=== PATIENT | male | born 1960 | race Caucasian/White ===

== ENCOUNTER 2025-07-04 02:00 | Inpatient (IN) | payer BC, MEDICARE, SELFPAY ==
[2025-07-03 20:40] VITALS: BP 123/78
[2025-07-03 21:08] LABS: Hematocrit 45.2 % (39.0-52.0); Hemoglobin 15.7 g/dL (13.0-18.0); Mean Corp Hgb Conc. 34.7 g/dL (33.0-37.0); Mean Corpuscular Volume 89.7 fL (80.0-94.0); Nucleated Red Blood Cells % 0 % (-); Platelet Count 260 10^3/uL (130-400); Red Cell Dist. Width 12.8 % (11.5-14.5)
[2025-07-03 21:18] LABS: INR 0.94; PT 13.1 Sec (11.4-14.6)
[2025-07-03 21:19] LABS: APTT 33.2 Sec (23.4-35.0)
[2025-07-03 21:29] LABS: ALT (SGPT) 34 U/L (0-50); AST (SGOT) 29 U/L (17-59); Albumin 4.5 g/dl (3.5-5.0); Alkaline Phosphatase 80 U/L (38-126); Blood Urea Nitrogen 18 mg/dl (9-20); Calcium 10.1 mg/dl (8.4-10.2); Carbon Dioxide 20 mmol/L (22-30); Chloride 106 mmol/L (98-107); Glucose 124 mg/dl (70-99); Potassium 4.0 mmol/L (3.5-5.1); Sodium 135 mmol/L (135-145)
[2025-07-03 21:39] LABS: Total Protein 7.0 g/dl (6.3-8.2); eGFR > 60.00
[2025-07-03 21:41] LABS: Troponin I < 0.012 ng/ml
[2025-07-03 23:10] VITALS: BMI 30.3
[2025-07-04] VITALS (29 sets, daily range): BP systolic 73–130; BP diastolic 60–81; BMI 30.1
--- NOTE | 2025-07-04 00:27 | ED.GENMED ---
History of Present Illness
General
Chief Complaint: Cardiac Symptoms
Source: patient and spouse
Exam Limitations: none
Time Seen by Provider: 07/03/25 23:52
Nursing documentation reviewed up to this point in time: agreed with
History of Present Illness
History of Present Illness:
The patient is a 64-year-old male who presented with the sudden onset of palpitations approximately two hours before arrival. The patient has no history of heart problems or congestive heart failure but has a history of diabetes that is generally
well-controlled with oral medications, including metformin, Mounjaro (tirzepatide), and Farxiga (dapagliflozin), as well as insulin. He reports no recent episodes of hypoglycemia after adjusting his insulin dose to 45 units of basal insulin daily.
HgbA1c of 6.0. The patient denies any recent increase in alcohol consumption, stating his consumption as minimal. He reports no associated symptoms such as pain, cough, cold, or fever. He exercises regularly without shortness of breath and has no
history of hypertension or stroke.
The patient has not previously experienced this kind of palpitations and denies any history of thyroid dysfunction, though thyroid function tests are pending. His palpitations were described as intermittent. At home with onset of palpitations his
heart rate was in the 130s with mildly low blood pressure. The patient is currently not under the care of a whip sawyer.
Past History
Past History
ED Past Medical History: Hypercholesterolemia and IDDM (Insulin requiring diabetes)
ED Past Surgical History: Appendectomy and Orthopedic
Social History
Tobacco: Non-smoker
Alcohol: Occasional
Drug: None
Personal:
Living: with family
Family History
Family History: Other (Noncontributory)
Phy Exam
Physical Exam
Physical Exam:
GENERAL: 64-year-old gentleman appears his stated age, bright and alert, pleasant, appears in no acute distress. is accompanying.
EYE: pupils equal and reactive
NECK: Supple, no significant adenopathy.
ENT: o/p clr, mmm.
CARDIAC: Irregularly irregular, intermittently tachycardic
LUNGS: Clear breath sounds bilaterally, no acute respiratory distress,
ABDOMEN: Soft, without focal tenderness, no r/g, no cvat
NEUROLOGICAL: Alert and oriented, no focal neuro deficits
SKIN: Warm and dry, skin intact.
MUSCULOSKELETAL: No edema, well perfused.
PSYCH: Normal and appropriate interaction.
Scores
[id number] Score for Afib Stroke Risk
Age in Years (65=0, 65-74=1, >/=75=2): 65-74
Sex (Female=+1): Male
Congestive Heart Failure History (Yes=+1): No
Hypertension History (Yes=+1): No
Stroke/TIA/Thromboembolism History (Yes=+2): No
Vascular Disease History (Yes=+1): No
Diabetes Mellitus (Yes=+1): Yes
Score: 2
Anticoagulation Recommendations: Recommend anticoagulation (as validated in nonvalvular fib)
Course
Orders/Labs/Results
Orders:
Orders
07/03/25 20:41
Electrocardiogram (*1) Urgent
Reason for Study: Tachycardia
EKG- Treatment ONCE
07/03/25 20:55
Complete Blood Count/With Diff Urgent
Comprehensive Metabolic Panel Urgent
Magnesium Urgent
Comment: ADD ON
PT/INR [Prothrombin Time] Urgent
Is patient on Coumadin/Warfarin?: No
Comment: [email or web address]
PTT Urgent
TSH Reflex To Free T4 Urgent
Comment: ADD ON
Troponin I Urgent
07/03/25 23:54
Add On- LAB Urgent
Tests Added?: TSH w reflex to free T-4, Magnesium
07/04/25 00:40
Propofol [Diprivan] 20 ml .ROUTE .STK-MED
07/04/25 01:34
Electrocardiogram (*1) Urgent
Reason for Study: Hypertension, Benign
EKG- Treatment ONCE
07/04/25 01:52
Admit/Transfer Patient As Directed
Co-Sign Provider:
Level of Care: Inpatient admission
Assign to:: Telemetry
Physician / Group: Elsa
Diagnosis: new onset afib
Reason for Telemetry: Medication for Arrhythmia
Date to Stop Telemetry: 07/06/25
Time to Stop Telemetry: 11:00
Reason for Hospitalization: [place]
Expected length of stay greater than two midnights?: Yes
ELOS- Estimated Length of Stay in days: 2
I certify the patient meets the requirements for IP care: Yes
PRN Pain Medication Management As Directed
May give lesser potent ordered pain med per pt: Yes
preference::
Protocol:: Medication orders for pain may be administered in a
manner that supports deferring to patient preference
when the pt is:
- Requesting an ordered lesser potent pain medication.
Least to most potent pain medications are defined
as: acetaminophen < NSAID < tramadol < opioids
(morphine, oxycodone, hydromorphone).
- Requesting a lesser dose of the same medication IF
ORDERED.
- Requesting a less intrusive route of administration
if both routes are prescribed by the provider (PO <
IV).
07/04/25 01:53
Code Status As Directed
Resuscitation Status: Full Code
07/04/25 01:57
Metoprolol [Lopressor] 25 mg PO NOW STA
07/04/25 03:11
Acetaminophen [Tylenol] 650 mg PO Q4HPRN PRN
Bisacodyl [Dulcolax] 10 mg RECTAL [id number] PRN
Dextrose 50%-Water [Dextrose 50% Syringe] 12.5 grams IV [id number] PRN
Docusate W/Senna [Senokot-S] 1 tablet PO BIDPRN PRN
Glucagon [GlucaGen] 1 mg IM PRN PRN
Ondansetron Injectable [Zofran] 4 mg IV Q6HPRN PRN
Polyethylene Glycol Powder [Miralax] 17 grams PO DAILYPRN PRN
07/04/25 03:11
Echo 2D MMode Color/Doppler Routine
Reason for Study: new onset afib
CARDIOLOGY CONSULT Routine
Consulting Provider: Pito Vasquez
Was physician already notified: No
Reason for consult: new onset afib
Consult Notification Routine
Specialty to Notify: Cardiology
Activity As Directed
Activity Level: With Assistance
Bedside Glucose Monitoring As Directed
Frequency: AC&HS
Additional Instructions:: Change to q6h if pt on TPN, tube feeding or not eating
Pneumatic Compression Sleeves As Directed
Type: Knee high
Vital Signs As Directed
Frequency: Per unit guidelines
DX Deep Vein Thrombosis Video Routine
07/04/25 Breakfast
1800 calorie (15 carb) Diabetic
Metoprolol [Lopressor] 12.5 mg PO Q6
07/04/25 06:12
Basic Metabolic Panel IN AM
Complete Blood Count/No Diff IN AM
Glycohemoglobin (HgbA1c) IN AM
Magnesium IN AM
07/04/25 07:30
Insulin Aspart Corrective Low [Novolog Flexpen-Low Resistance] See Protocol SC AC
07/04/25 08:00
Apixaban [Eliquis] 5 mg PO BID
Atorvastatin [Lipitor] 10 mg PO DAILY
Dapagliflozin [Farxiga] 10 mg PO DAILY
METFORMIN HCl [Glucophage] 1,000 mg PO BID
07/06/25 11:00
DC Protocol for Telemetry ONCE
Abnormal Lab Results
07/03/25
20:55
WBC 16.5 H 10^3/uL
(4.8-10.8)
MCH 31.2 H pg
(27.0-31.0)
Absolute Neuts (auto) 8.6 H 10^3/uL
(1.4-6.5)
Absolute Lymphs (auto) 6.4 H 10^3/uL
(1.2-3.4)
Absolute Monos (auto) 1.2 H 10^3/uL
(0.1-0.6)
Carbon Dioxide 20 L mmol/L
(22-30)
Glucose 124 H mg/dl
(70-99)
07/03/25 20:55
07/03/25 20:55
Vital Signs
Initial and Last Documented VS:
Initial Vital Signs
Temp Pulse Resp BP Pulse Ox
98.2 F 137 18 123/78 98
07/03/25 20:40 07/03/25 20:40 07/03/25 20:40 07/03/25 20:40 07/03/25 20:40
Last Documented Vital Signs
Temp Pulse Resp BP Pulse Ox
97.5 F 64 16 115/62 98
07/04/25 03:23 07/04/25 06:22 07/04/25 03:23 07/04/25 06:22 07/04/25 03:23
Procedures
Cardioversion
Indication:: Afib
Performed by:: myself
Synchronized?: Yes
Energy Used: 200 joules (x 1)
Number of attempts: 150 J x1, 200 J x2
Successful?: No (Brief conversion to normal sinus rhythm on each attempt but then converts b)
Complications: none
ASA Risk Score: Class II
Any reaction or bad outcome to prior sedation/anesthesia?: No history of a reaction
Sedation level to be attained: moderate
Chart and allergies reviewed: Yes
Patient reassessed prior to sedation: Yes
Time out completed at (validating right patient & procedure): 00:53
History of difficult intubation: No
Airway free of obstruction: Yes
Patient has a gag reflex: Yes
Patient is able to open mouth: Yes
Patient has no dentures: Yes
Patient has no loose teeth: Yes
Medication administered by Provider during Moderate Sedation: IV Propofol (mg)
Total dose administered: 140
Time drug administered: 00:54
Start Time: 00:54
Stop Time: 01:10
MDM/Problems Addressed
Differential Diagnosis Includes:
The Differential Diagnosis includes, in no particular order and is not limited to:
- Atrial fibrillation
- Supraventricular tachycardia
- Anxiety
- Hyperthyroidism
- Premature ventricular contractions
- Premature atrial contractions
- Coronary artery disease
- Anemia
- Caffeine or stimulant exposure
- Electrolyte imbalance
MDM/Problems Addressed:
Acute heart palpitations
EKG shows atrial fibs flutter with ventricular response of 101. Normal axis. Normal QT. No acute ST-T wave abnormalities. No old EKGs to compare.
Monitor continues to show A-fib flutter with variable heart rate ranging from the 80s to 120. Generally rate controlled. Blood pressure is somewhat soft at 110 systolic. He has no history of hypertension.
At this point does not require IV medication for rate control.
We could consider initiation of metoprolol or Cardizem orally for rate control, discharged to home with plan for prompt follow-up with cardiology. However with soft blood pressure I am concerned for development of hypotension with any attempt at
further rate control.
Therefore, recommend we move to electrical cardioversion.
Patient agreeable with this plan.
Labs reveal mildly elevated white blood cell count. Nonspecific. He denies recent URI. He is afebrile. Chemistries are unremarkable. Troponin is negative.
Will add thyroid function as well as magnesium.
His happens to work for [employer], the [employer]. Ultimately, patient will require follow-up with cardiology and will plan for referral to [facility] cardiology.
If cardioversion successful will plan for discharge to home with a prescription for Eliquis.
[id number] score of 2; we did discuss the patient will likely require lifelong anticoagulation.
Chronic conditions affecting care: DM
*Pulse Oximetry
SaO2: 96
Oxygen Mode of Delivery: Room air
Patient hypoxic: no
*EKG
Interpreted by ED Provider?: Yes
Interpretation: abnormal
Comparison EKG: no comparison EKG present
Rate: tachycardiac
Rhythm: a-fib
[place]: normal axis
Interval: normal interval
QRS Pattern: normal QRS
Ischemia: no ischemia
*Hand Ornament Maker Interpretation
Rate: normal and tachycardiac
Interpretation: abnormal
Rhythm: a-fib
*Critical Care Note
Total Time (30-74mins, 75-104mins- exclusive of procedures): Not Applicable
Update Note
Update Note:
01:30
Unsuccessful cardioversion. Despite 3 synchronized electrical cardioversions which noted prompt cardioversion to normal sinus rhythm with first-degree AV block. Sinus rhythm was unsustained on each cardioversion attempt, converting back to A-fib
within 15 to 30 seconds.
As such, no further cardioversion attempts.
Patient tolerated procedure well. Remains hemodynamically stable.
Blood pressure remains somewhat soft, initially after procedure in the 80s, has improved to 100-110 systolic.
Case discussed with cardiology, Dr. Vasquez.
Request patient be admitted to hospitalist service with consult to cardiology.
Recommends initiation of Eliquis. Could initiate low-dose beta-cecilio for rate control if needed.
Cardiology will evaluate at bedside in the AM.
ED Attending Note
-
Portions of this chart may have been created with voice recognition software.� Occasional wrong word or��sound alike� substitutions may have occurred due to the inherent limitations of voice recognition software.
Discharge Plan
Departure
Patient Disposition: Admit
Date of Disposition: 07/04/25
Time of Disposition: 01:33
Admit to: Telemetry
Admit to doctor: Arsenio
Presentation/result/management discussed w/ accepting MD/DO: Hospitalist
Condition: Fair
Discharge Problem:
New onset A-fib flutter, Unsuccessful atrial fib cardioversion
Interventions
Interventions:
*Risk Screen - Suicide Last Done: 07/03/25 20:43
*General Assessment Last Done: 07/03/25 23:22
*Neglect/Abuse Screening Last Done: 07/03/25 20:43
*ED- Fall Risk Assessment Last Done: 07/03/25 23:22
*ED COVID-19 Vaccine History Last Done: 07/03/25 23:22
*ED Influenza Vaccine History Last Done: 07/03/25 23:22
*Nursing Disposition Last Done: 07/04/25 02:59
ED- Pulmonary Assessment Last Done: 07/03/25 23:21
ED- Cardiac Assessment Last Done: 07/03/25 23:21
Discharge Date and Time
Discharge Date/Time: 07/04/25 03:00
[2025-07-04 00:41] LABS: Magnesium 1.9 mg/dl (1.6-2.3)
--- NOTE | 2025-07-04 01:38 | HPS.HSE ---
Family Physician
-
Family Physician: George Cervantes MD
Chief Complaint
-
Palpitation
History of Present Illness
This is a 4-year-old male with past medical history significant for insulin-dependent diabetes, hyperlipidemia who presents to the emergency department with palpitations.
Patient felt palpitations while sitting down this evening. He checked his heart rate on his watch and it was elevated. He stated went to as high as 130 and occasionally goes back down only to come back to 130s. He denied feeling lightheaded or
dizzy. When his blood pressure was checked it was low to low 90s systolic. They decided come to the emergency department to be evaluated. He said when he arrived in the emergency department his heart rate was initially in the 130s but did dip
down again to less than 100. In the emergency department there was an attempted cardioversion due to the abrupt onset of atrial fibrillation/flutter. However cardioversion was attempted 3 times without conversion. He is currently in controlled
atrial fibrillation.
In the emergency department the patient was afebrile, currently blood pressure is 108/74 with a pulse of 78-100 and satting 98% on room air.
White count was 16.5 hemoglobin 15.7 platelet 260. Electrolytes are within normal range. BUN and creatinine were normal and glucose was normal. ECG shows atrial flutter at a rate of 101. Troponin 0.012. TSH within the normal limits.
Medical History
Past Medical History
Past Medical History: Reports Hypercholesterolemia and NIDDM
Past Surgical History: Reports Other
Social History
Tobacco: Non-smoker
Alcohol: Occasional
Drug: None
Personal:
Living: With Family
Family History
Family History: Not pertinent
Allergies / Home Medications
Allergies reflects when Allergies were last updated in [facility].
Home Medications with original date entered in [facility]
Allergy/Medication List:
Allergies
Allergy/AdvReac Type Severity Reaction Status Date / Time
No Known Allergies Allergy Verified 07/03/25 23:30
Home Medications
atorvastatin 10 mg tablet 10 mg PO DAILY 07/03/25
cholecalciferol (vitamin D3) 125 mcg (5,000 unit) tablet (Vitamin D3) 125 mcg PO DAILY 07/03/25
coenzyme Q10 100 mg capsule 100 mg PO DAILY 07/03/25
dapagliflozin propanediol 10 mg tablet (Farxiga) 10 mg PO DAILY 07/03/25
insulin glargine 100 unit/mL subcutaneous cartridge 45 unit SC DAILY 07/03/25
metformin 1,000 mg tablet 1,000 mg PO BID 07/03/25
tirzepatide 10 mg/0.5 mL subcutaneous pen injector (Mounjaro) 10 mg SC QWEEK 07/03/25
Review of Systems
-
Constitutional: Reports No Symptoms
EENT: Reports No Symptoms
Respiratory: Reports No Symptoms
Cardiac: Reports No Symptoms
Abdomen/GI: Reports No Symptoms
: Reports No Symptoms
Musculoskeletal: Reports No Symptoms
Skin: Reports No Symptoms
Neurological: Reports No Symptoms
Endocrine: Reports No Symptoms
Hematologic/Lymphatic: Reports No Symptoms
Psych: Reports No Symptoms
Physical Exam
Vital Signs
Vital Signs
Temp Pulse Resp BP Pulse Ox
97.7 F 78 16 108/74 95
07/04/25 01:25 07/04/25 01:25 07/04/25 01:25 07/04/25 01:25 07/04/25 01:25
Physical Exam
General: Well Developed, Well Nourished and No Apparent Distress
HEENT: NormoCephalic, Moist mucous membranes and Atraumatic
Respiratory: Clear
Cardiac: S1/S2 and Irregular Rhythm; No Murmur or Rub
GI: Soft, Non Tender, Non Distended and Normal Bowel Sounds; No Organomegaly
Rectal: Deferred by Provider
Musculoskeletal: No Clubbing, No Cyanosis and No Edema
Skin: No Rash
Neuro: AO x 3 and Nonfocal/grossly intact
Laboratory Results
-
07/03/25 20:55
07/03/25 20:55
Laboratory Results
PT 13.1 Sec (11.4-14.6) 07/03/25 20:55
INR 0.94 07/03/25 20:55
APTT 33.2 Sec (23.4-35.0) 07/03/25 20:55
Total Bilirubin 0.6 mg/dl (0.2-1.3) 07/03/25 20:55
AST 29 U/L (17-59) 07/03/25 20:55
ALT 34 U/L (0-50) 07/03/25 20:55
Alkaline Phosphatase 80 U/L (38-126) 07/03/25 20:55
Troponin I < 0.012 ng/ml 07/03/25 20:55
Data Reviewed
-
Medical Tests (Nuc Med, Echo, EKG etc): Image Personally Visualized and interpreted
Lab Data: Labs Reviewed by me
Old Records: Reviewed
Impression/Plan
-
IMPRESSION:
66-year-old male with past medical history of mag-[id number] diabetes presented to the emergency department with new onset atrial fibrillation on with episodes of RVR with minimal exertion. Attempted cardioversion in the ED failed after 3
attempts with patient now remaining in atrial flutter at a 124 conduction with rates of 100. He is afebrile and hemodynamically stable. Troponin negative. Denies having any chest pain. TSH within normal limits.
PLAN:
New onset atrial fibrillation - RVR appears to occur only with exertion.
- admit to telemetry
- currently rate controlled
- start metoprolol 12.5mg po q 6 with hold parameters
- tsh wnl,
- check echo in am
- [id number] = 2, recommend to start eliquis
- cardiology consultation to [facility]
DM II
- lantus 30 hs for now
- sliding scale insulin
- continue farxiga
- continue statin
- continue metformin
DVT PPX - starting eliquis
Code status - Full Code
[2025-07-04] MEDS: LOPRESSOR 25 MG PO (02:05)
[2025-07-04] MEDS: LOPRESSOR 12.5 MG PO (06:22)
[2025-07-04 06:49] LABS: Hematocrit 44.3 % (39.0-52.0); Hemoglobin 15.1 g/dL (13.0-18.0); Mean Corp Hgb Conc. 34.1 g/dL (33.0-37.0); Mean Corpuscular Volume 93.7 fL (80.0-94.0); Platelet Count 241 10^3/uL (130-400); Red Cell Dist. Width 12.8 % (11.5-14.5)
[2025-07-04 07:19] LABS: Blood Urea Nitrogen 19 mg/dl (9-20); Calcium 8.9 mg/dl (8.4-10.2); Carbon Dioxide 21 mmol/L (22-30); Chloride 109 mmol/L (98-107); Estimated Creatinine Clearance 82 ml/min; Glucose 99 mg/dl (70-99); Magnesium 2.0 mg/dl (1.6-2.3); Potassium 4.1 mmol/L (3.5-5.1); Sodium 139 mmol/L (135-145); eGFR > 60.00
--- NOTE | 2025-07-04 07:27 | CON.CAR ---
Addendum entered and electronically signed by Chace Coleman MD 07/04/25 16:36:
Patient seen, interviewed and examined by me.
Well-appearing, no acute distress
Regular rate and rhythm with normal S1 and S2, no S3 no S4. There is a grade 1/6 apical holosystolic murmur and no rubs. PMI is normally placed.
Lungs are clear to auscultation bilaterally without wheezes rales or rhonchi.
Abdomen soft nontender nondistended with normoactive bowel sounds
Extremities show trace pretibial edema bilaterally no clubbing or cyanosis.
Neurologic exam is grossly nonfocal.
Assessment/plan:
He presents with newly diagnosed atrial flutter.
ECG appearance is most consistent with typical counterclockwise right atrial flutter.
Cardioversion was attempted in the emergency department but failed to restore and maintain sinus rhythm.
He has no contraindication to oral anticoagulation and therefore Eliquis 5 mg twice daily initiated for atrial fibrillation related thromboembolic risk reduction given his elevated background thromboembolic risk with CHADSVASc = 2 based on age and
diabetes mellitus.
In the interim he has spontaneously converted to sinus rhythm.
I had a long discussion with the patient as I discussed normal sinus rhythm and contrasted that to atrial flutter, we even discussed atrial fibrillation which he is at risk for developing given that he now has a diagnosis of atrial flutter.
I discussed management options in detail including rate control versus rhythm control with either medical therapy or ablation.
We have decided on the following:
- Inpatient loading for dofetilide while we maintain low-dose beta-cecilio for rate control
His fifth dose of dofetilide will be Tuesday morning and we can plan for discharge later that day once we have assessed telemetry and ECGs for QT interval prolongation
- Maintain oral anticoagulation
- Plan for EP study and ablation targeting typical right atrial flutter on Tuesday, July 08.
- As an outpatient I would like him to have home sleep study to evaluate for obstructive sleep apnea.
Echo 07/04/2025: EF 60 to 65%, mild LVH, and some short axis views the septum appears mildly flattened, mildly dilated RV with normal RV function
There is is concern for the possibility of pulmonary embolism and therefore CT angiogram of the chest was obtained.
CT angiogram finds no evidence of pulmonary embolism.
There is finding of 'Straightening of the interventricular septum noted with RV/LV ratio approximately 1-1' and this is felt likely to be related to his pectus excavatum and therefore no further evaluation at this time.
Original Note:
Consultation
Consultation Request
Date/Time Consultation Requested: 07/04/25 at 0311
Date/Time Consultation Performed: 07/04/25 at 0723
Requesting Provider: Dr. Hoang
Performing Provider: Dr. Chace Coleman
Reason for Consultation: Newly diagnosed Afib
Medical History
-
History of Present Illness:
Patient came to the ER late last night with palpitations and was admitted with atrial flutter following unsuccessful CV and cardiology is now consulted. Patient had a normal day yesterday and after eating dinner was seated on the sofa in his home
when he felt palpitations and his heart racing. No chest pain, SOB or lightheadedness. He has never had feelings like that before. His who is a nurse in our cardiology office checked his pulse and then checked BP using home machine. Overall
HR was fast with some irregularity. Despite rest for 30 minutes his symptoms did not improve and he came to the ER. Following all wait in the waiting room he was taken back to a room and remained in atrial flutter. There was an attempt at CV with
150 J then 200 J and then 200 J was only a brief islam of SR until he went back into atrial flutter. Patient was admitted for cardiology evaluation. He remains in atrial flutter this morning, but less aware of palpitations. Still no chest
pain or SOB.
PMH:
DM 2
Hyperlipidemia
Past Medical History
Past Medical History: Other (in HPI)
Past Surgical History: Appendectomy and Orthopedic
Social History
Tobacco: Non-Smoker
Alcohol: Occasional
Drug: None
Personal:
Living: With Family
Family History
Family History: Other (no FH of arrhythmia)
Allergies / Home Medications
Allergy/AdvReac Type Severity Reaction Status Date / Time
No Known Allergies Allergy Verified 07/03/25 23:30
�Medication �Instructions �Recorded �Confirmed �Type
atorvastatin 10 mg tablet 10 mg PO DAILY 07/03/25 07/03/25 History
cholecalciferol (vitamin D3) 125 125 mcg PO DAILY 07/03/25 07/03/25 History
mcg (5,000 unit) tablet (Vitamin
D3)
coenzyme Q10 100 mg capsule 100 mg PO DAILY 07/03/25 07/03/25 History
dapagliflozin propanediol 10 mg 10 mg PO DAILY 07/03/25 07/03/25 History
tablet (Farxiga)
insulin glargine 100 unit/mL 45 unit SC DAILY 07/03/25 07/03/25 History
subcutaneous cartridge
metformin 1,000 mg tablet 1,000 mg PO BID 07/03/25 07/03/25 History
tirzepatide 10 mg/0.5 mL 10 mg SC QWEEK 07/03/25 07/03/25 History
subcutaneous pen injector
(Caleunlanec)
Review of Systems
-
History Source: Patient and Family ( by phone)
All other systems: Negative unless noted
Physical Exam
Vital Signs
Temp Pulse Resp BP Pulse Ox
97.5 F 64 16 115/62 98
07/04/25 03:23 07/04/25 06:22 07/04/25 03:23 07/04/25 06:22 07/04/25 03:23
GEN: NAD. AAOx3
HEENT: EOMI, MMM
LUNGS: RA. CTA B/L, no wheeze
CV: Aflutter on tele. Irreg, S1/S2, no murmur
ABD: ND
EXT: No edema B/L LE
NEURO: Gross non-focal
SKIN: No rash
Lab Results
07/04/25 06:12
07/04/25 06:12
Troponin I < 0.012 ng/ml 07/03/25 20:55
Impression / Plan
-
PCP: Dr. Cervantes
Card: None
Impression:
Admitted with Afib and unsuccessful CV 07/04/25
Newly diagnosed paroxysmal typical atrial flutter 07/04/2025
Unsuccessful CV in the ER medical liaison 07/04/2025
150 J then 200 J then 200 J with brief islam of SR in the back into atrial flutter
DM 2
Hyperlipidemia
Abnormal echo with mildly dilated RV and overall normal function
Echo 07/04/2025: EF 60 to 65%, mild LVH, and some short axis views the septum appears mildly flattened, mildly dilated RV with normal RV function, focal calcification anterior mitral valve leaflet without regurgitation or stenosis, aortic valve
mildly thickened without regurgitation or stenosis, trivial pericardial effusion without evidence of hemodynamic compromise, no evidence of pulmonary hypertension, trace TR with PAP 20 mmHg's
Plan:
-Patient came to the ER late last night with palpitations and was admitted with atrial flutter following unsuccessful CV and cardiology is now consulted. Patient had a normal day yesterday and after eating dinner was seated on the sofa in his home
when he felt palpitations and his heart racing. No chest pain, SOB or lightheadedness. He has never had feelings like that before. His who is a nurse in our cardiology office checked his pulse and then checked BP using home machine. Overall
HR was fast with some irregularity. Despite rest for 30 minutes his symptoms did not improve and he came to the ER. Following all wait in the waiting room he was taken back to a room and remained in atrial flutter. There was an attempt at CV with
150 J then 200 J and then 200 J was only a brief islam of SR until he went back into atrial flutter. Patient was admitted for cardiology evaluation. He remains in atrial flutter this morning, but less aware of palpitations. Still no chest
pain or SOB.
-ECG reviewed by me shows atrial flutter, telemetry reviewed by me shows atrial flutter
-Patient had attempt at CV in the ER overnight that was unsuccessful with only brief islam of SR and then he went back into atrial flutter. Given that patient had unsuccessful CV in the ER we would recommend initiation of AAD in the form of
Tikosyn. Discussed with the patient and then later his the risks versus the benefits of Tikosyn including the need for 2-1/2-day admission to allow for 5 loading doses so that we can monitor for any QT prolongation. Patient will discuss
further with EP attending, in the meantime we will move him from 3 W. to the IVU where he can be loaded with Tikosyn if he is agreeable.
-CrCl calculated by me is greater than 100 so patient will dose with 500 mcg every 12 hours if he is agreeable
-Echo report reviewed by me and summarized above, there is some mild septal flattening in a few of the short axis views and there is a mildly dilated RV with normal RV function. He last traveled about a month ago flying to [place], no calf pain.
No SOB. Based on new A-fib and abnormal echo we will check a CT with PE protocol, ordered by me. Check D-dimer, ordered by me.
-Eliquis 5 mg BID (age 64, Cre 1.0) started in the ER and should be continued
-Patient will review long-term management options with EP again in the office with the possibility of more definitive management with ablation for his atrial flutter.
-TSH is normal at 2.7
-Patient denies any history of snoring, we discussed empiric outpatient [facility] evaluation
[2025-07-04 09:12] LABS: Glycohemoglobin (HgbA1c) 6.1 % (4.0-5.9)
[2025-07-04 09:12] LABS: Glucose - Point of Care 97 mg/dl (70-99)
[2025-07-04] MEDS: LANTUS 0.3 UNITS SC (09:12)
[2025-07-04] MEDS: GLUCOPHAGE 1000 MG PO ×2 (09:14→20:02)
[2025-07-04] MEDS: ELIQUIS 5 MG PO ×2 (09:14→20:01)
[2025-07-04] MEDS: LIPITOR 10 MG PO (09:14)
[2025-07-04] MEDS: FARXIGA 10 MG PO (09:14)
--- NOTE | 2025-07-04 09:31 | W.PN.HOSP.TC ---
Today's Communication/Plan
-
Check EKG
Echocardiogram
Cardiology consult
Assessment / Plan
Assessment / Plan
Gen-AAOx3, NAD
HEENT-NC, AT, anicteric, clear oral mm
Neck-supple
CV-reg, no M, +S1/S2
Lungs-clear B/L
Abd-soft, NT, ND
Ext-no edema
Musculoskeletal-no cyanosis, clubbing
Skin-warm and dry
Neuro-grossly non-focal
Psych-calm, cooperative
New onset rapid atrial fibrillation -unsuccessful cardioversion x 3 in the emergency room last night.
Currently on metoprolol, Eliquis.
Currently rate controlled, appears to be in sinus rhythm on the monitor. Check twelve-lead EKG. Discussed with nursing.
Cardiology consulted. Echocardiogram pending. TSH 2.7.
Leukocytosis -present on admission. Suspect leukemoid reaction. WBC count normal today. Afebrile. Nontoxic. Monitor for now.
DM 2 without hyperglycemia -hemoglobin A1c pending. Patient states glucoses have been under good control.
Has been on Farxiga 10 mg daily, metformin 1000 mg twice daily, glargine insulin 45 units every morning. Is in the process of transitioning from glargine to tirzepatide 10 mg subcu weekly.
Hyperlipidemia -atorvastatin.
Obesity due to excess calories
Full code
Dispo -discharge later today if cleared by cardiology. Outpatient follow-up.
Anticipated Discharge: Today
Subjective/Interval History
-
Date of Service: July 04, 2025
Patient seen and examined. No complaints.
Objective Data
-
Labs:
Laboratory Results
07/03/25 07/04/25
20:55 06:12
WBC 10.7
Hgb 15.1
Hct 44.3
Plt Count 241
Sodium 139
Potassium 4.1
Chloride 109 H
Carbon Dioxide 21 L
BUN 19
Creatinine 1.1 1.0
Glucose 99
Calcium 8.9
Total Bilirubin 0.6
Vital Signs:
Vital Signs
Temp Pulse Resp BP Pulse Ox
98.1 F 66 16 110/67 96
07/04/25 07:38 07/04/25 07:38 07/04/25 07:38 07/04/25 07:38 07/04/25 07:38
Review of Systems
-
History Source: Patient
All other systems: Reviewed and negative
--- NOTE | 2025-07-04 09:52 | W.CARD.TIKOS ---
Addendum entered and electronically signed by Chace Coleman MD 07/04/25 16:30:
.
Original Note:
Initiate Tikosyn
-
I verify that the patient has not taken any verapamil (Isoptin/Calan), ketoconazole (Nizoral), cimetidine (Tagamet), trimethoprim (Trimpex), trimethoprim/sulfamethoxazole (Bactrim), megesterol (Megace), prochlorperazine (Compazine),
hydrochlorothiazide (HCTZ), dolutegravir (Tivicay) or any Class I or Class III anti-arrhythmic within the last three days
AND
I verify that the patient has not taken amiodarone within the last THREE months, or that the patient's amiodarone plasma concentration is <0.3 mcg/mL.
Creatinine 1.0 mg/dL (0.7-1.3) 07/04/25 06:12
Estimated Creat Clear 82 ml/min 07/04/25 06:12
CrCl 106
Does patient have a Ventricular Conduction Abnormality: No
I have assessed the baseline QTc interval (using QT for heart rate less than 60 bpm) and deemed the patient is appropriate for Dofetilide therapy. I understand that Tikosyn is contraindicated if the QTc is >440msec (500msec in patients with
ventricular conduction abnormalities).
Baseline QTc (in msec): 407
[2025-07-04 11:45] LABS: D-Dimer 0.35 ug/mlFEU (0.00-0.50)
[2025-07-04 12:24] LABS: Glucose - Point of Care 83 mg/dl (70-99)
[2025-07-04] MEDS: TIKOSYN 500 MCG PO ×2 (12:41→22:15)
[2025-07-04] MEDS: LOPRESSOR PO (13:02)
[2025-07-04] MEDS: TOPROL XL 25 MG PO (13:06)
--- NOTE | 2025-07-04 13:17 | SUR.OPER ---
Patient received from [facility]. He is AO x3. SR with first degree HB HR 85. Independently walking in room and halls, denies pain or shortness of breath, VSS. Plan of care reviewed with patient. Tikosyn #1 dose given. Call maya in reach
--- NOTE | 2025-07-04 15:05 | CM ---
Chart reviewed. Patient is independent of ADLS, lives with his in a split level, 0 MALCOM, 0 DME. Plan is for the patient to return home. CM to follow
--- NOTE | 2025-07-04 15:06 | CM ---
Pricing on Eliquis through the patient's PP, ID# [id number] #[phone], is covered at $35 for a 30 day supply. I placed a $10 copay card in his red discharge folder
Dofetilide is covered at $5 for a 30 day supply.
[2025-07-04] MEDS: HYDROPHOR 1 APPLIC TOPICAL (15:33)
[2025-07-04 17:27] LABS: Glucose - Point of Care 76 mg/dl (70-99)
[2025-07-04 22:03] LABS: Glucose - Point of Care 99 mg/dl (70-99)
[2025-07-05 03:27] VITALS: BP 107/61
--- NOTE | 2025-07-05 07:37 | PTCARENOTE ---
Pt NSR on monitor, VSS. Pt denies any pain or discomfort. Ambulates with x 1 assist, Call maya within reach
[2025-07-05 07:53] VITALS: BP 134/75
[2025-07-05 08:06] VITALS: BMI 29.3
--- NOTE | 2025-07-05 08:24 | W.PN.HOSP.TC ---
Today's Communication/Plan
-
Continue current care
Assessment / Plan
Assessment / Plan
Gen-AAOx3, NAD
HEENT-NC, AT, anicteric, clear oral mm
Neck-supple
CV-reg, no M, +S1/S2
Lungs-clear B/L
Abd-soft, NT, ND
Ext-no edema
Musculoskeletal-no cyanosis, clubbing
Skin-warm and dry
Neuro-grossly non-focal
Psych-calm, cooperative
New onset rapid atrial fibrillation -unsuccessful cardioversion x 3 in the emergency room. Spontaneously converted to sinus rhythm yesterday morning.
Tikosyn loading per cardiology. Noted plans for ablation next week, July 08.
Symptoms completely resolved.
Currently on metoprolol, Eliquis.
TSH 2.7.
Echocardiogram shows LVEF 60 to 65%, trivial pericardial effusion, no pulmonary hypertension. Mildly dilated RV with normal RV systolic function. In some short axis views the septum appeared mildly flattened.
CT chest negative for pulmonary embolism. Straightening Interventricular septum noted with RV/LV ratio approximately 1-1. Minimal coronary artery calcification in the left circumflex.
Leukocytosis -present on admission. Suspect leukemoid reaction. WBC count now normal. Afebrile.
DM 2 without hyperglycemia -hemoglobin A1c 6.1%. Patient states glucoses have been under good control.
Has been on Farxiga 10 mg daily, metformin 1000 mg twice daily, glargine insulin 45 units every morning. Is in the process of transitioning from glargine to tirzepatide 10 mg subcu weekly.
Currently on glargine 30 units at bedtime, metformin at thousand twice a day, Farxiga 10 mg daily, aspart low resistance scale.
Glucoses are well-controlled in the hospital.
Hyperlipidemia -atorvastatin.
Obesity due to excess calories
Full code
Dispo -discharge Tuesday if okay with cardiology.
Anticipated Discharge: Within 24 hours
Subjective/Interval History
-
Date of Service: July 05, 2025
Patient seen and examined, no complaints.
Objective Data
-
Vital Signs:
Vital Signs
Temp Pulse Resp BP Pulse Ox
98.1 F 64 18 107/61 98
07/05/25 08:06 07/05/25 03:27 07/05/25 08:06 07/05/25 03:27 07/05/25 08:06
I&O
07/04/25 07/05/25 07/06/25
06:59 06:59 06:59
Intake Total 200 / 200
Balance 200 / 200
Review of Systems
-
History Source: Patient
All other systems: Reviewed and negative
[2025-07-05] MEDS: FARXIGA 10 MG PO (08:28)
[2025-07-05] MEDS: GLUCOPHAGE 1000 MG PO ×2 (08:28→19:54)
[2025-07-05] MEDS: LIPITOR 10 MG PO (08:29)
[2025-07-05] MEDS: TOPROL XL 25 MG PO (08:29)
[2025-07-05] MEDS: ELIQUIS 5 MG PO ×2 (08:29→19:54)
[2025-07-05] MEDS: LANTUS 0.3 UNITS SC (08:30)
[2025-07-05 08:36] LABS: Glucose - Point of Care 180 mg/dl (70-99)
[2025-07-05] MEDS: TIKOSYN 500 MCG PO ×2 (09:11→19:53)
--- NOTE | 2025-07-05 09:26 | PTCARENOTE ---
Assumed care at 0700. Patient with no complaints. NSR with 1st degree HB in the 70's, VSS. Order received to shower daily. Tikosyn dose #3 given
--- NOTE | 2025-07-05 10:39 | W.PN.CARDCBS ---
Addendum entered and electronically signed by Nancy Coleman MD 07/05/25 11:01:
I saw and examined the patient.
The Contact Center Associate's note was reviewed and I agree with the note.
Comment: Exam is stable. Regular rate and rhythm. Lungs are clear. Vital signs stable. No complaints.
Doing well overnight. Patient was admitted with rapid new atrial flutter and at initial unsuccessful cardioversion. He spontaneously converted. He continues on dofetilide. QT interval stable on subsequent EKG. Continue to follow.
Plan for atrial flutter ablation next week as an outpatient which we discussed.
Continue anticoagulation. He is tolerating without problem. Continue dofetilide with fifth dose scheduled for Tuesday.
During this hospital stay abnormal echocardiogram with abnormal right ventricle in retrospect is secondary to pectus excavatum. No further assessment needed.
Continue cardiac risk factor modification. Diabetes well-controlled by report.
Discussed at length with patient.
Original Note:
Today's Communication / Plan
-
Continue dofetilide load
QTc stable
Impression / Plan
-
PCP: Dr. Cervantes
Card: None
Impression:
Admitted with Afib and unsuccessful CV 07/04/25
Newly diagnosed paroxysmal typical atrial flutter 07/04/2025
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
150 J then 200 J then 200 J with brief hindu of SR in the back into atrial flutter
DM 2
Hyperlipidemia
Abnormal echo with mildly dilated RV and overall normal function
Echo 07/04/2025: EF 60 to 65%, mild LVH, and some short axis views the septum appears mildly flattened, mildly dilated RV with normal RV function, focal calcification anterior mitral valve leaflet without regurgitation or stenosis, aortic valve
mildly thickened without regurgitation or stenosis, trivial pericardial effusion without evidence of hemodynamic compromise, no evidence of pulmonary hypertension, trace TR with PAP 20 mmHg's
Plan:
-Patient came to the ER 07/04/2025 with palpitations and was admitted with atrial flutter following unsuccessful CV in ER with 150 J then 200 J and then 200 J. Had brief hindu of SR until he went back into atrial flutter.
-Eliquis 5 mg BID (age 64, Cre 1.0) initiated for atrial fibrillation related thromboembolic risk reduction given his elevated background thromboembolic risk with CHADSVASc = 2 based on age and diabetes mellitus.
-EP discussed rate control and rhythm control options
-Started on antiarrythmic tx with dofetilide 500 mcg twice daily. Calc CrCl >100
-converted to NSR
-EKG QTc stable 447 msec after 2 doses of med. His fifth dose of dofetilide will be Tuesday morning and we can plan for discharge later that day once we have assessed telemetry and ECGs for QT interval prolongation.
- Plan for EP study and ablation targeting typical right atrial flutter on July 08.
-home sleep study to evaluate for obstructive sleep apnea in outpt setting
-Chest CT PE ordered due to mildly dil RV on Echo. CT negative for PE. minimal coronary art calcification present in circumflex artery.
-TSH is normal at 2.7
-K4.1, mag 2.0
-Continue outpatient metoprolol succinate 25 mg daily
-Continue outpatient Farxiga 10 mg daily
-Continue outpatient atorvastatin 10 mg daily
Progress Note - Global Chief Experience Officer
Subjective
Date of Service: July 05, 2025
Converted to sinus rhythm,
No palpitations, lightheadedness, shortness of breath, CP
Objective
Labs:
07/04/25 06:12
07/04/25 06:12
Labs
Hgb 15.1 g/dL (13.0-18.0) 07/04/25 06:12
Hct 44.3 % (39.0-52.0) 07/04/25 06:12
Plt Count 241 10^3/uL (130-400) 07/04/25 06:12
PT 13.1 Sec (11.4-14.6) 07/03/25 20:55
INR 0.94 07/03/25 20:55
APTT 33.2 Sec (23.4-35.0) 07/03/25 20:55
Sodium 139 mmol/L (135-145) 07/04/25 06:12
Potassium 4.1 mmol/L (3.5-5.1) 07/04/25 06:12
BUN 19 mg/dl (9-20) 07/04/25 06:12
Creatinine 1.0 mg/dL (0.7-1.3) 07/04/25 06:12
Glucose 99 mg/dl (70-99) 07/04/25 06:12
Troponins
07/03/25
20:55
Troponin I < 0.012
Vital Signs and I&O:
Vital Signs
Temp Pulse Resp BP Pulse Ox
98.1 F 71 18 134/75 98
07/05/25 08:06 07/05/25 10:15 07/05/25 08:06 07/05/25 07:53 07/05/25 08:06
Vital Signs
Temp Pulse Resp BP Pulse Ox
98.1 F 71 18 134/75 98
07/05/25 08:06 07/05/25 10:15 07/05/25 08:06 07/05/25 07:53 07/05/25 08:06
Intake & Output
07/03/25 07/04/25 07/05/25 07/06/25
06:59 06:59 06:59 06:59
Intake Total 200 / 200 480 / 480
Balance 200 / 200 480 / 480
Physical Exam
Physical Exam
GEN: No distress, awake, Ox3
HEENT: supple, anicteric, mmm
LUNGS: CTA, no wheezes/rales
CV: Reg, S1/S2, no murmur
ABD: soft, BS+, NT/ND
EXT: No edema
NEURO: Gross non-focal
SKIN: No rash
[2025-07-05 11:02] VITALS: BP 127/75
[2025-07-05 13:08] LABS: Glucose - Point of Care 81 mg/dl (70-99)
--- NOTE | 2025-07-05 15:02 | CM ---
called pts erlin/latoya, they will have dofetilide in by . pt to go home with #6 dofetilide tablets (3 days) from pharm.
[2025-07-05 15:12] VITALS: BP 113/65
[2025-07-05 17:24] LABS: Glucose - Point of Care 132 mg/dl (70-99)
[2025-07-05 18:52] VITALS: BP 129/77
--- NOTE | 2025-07-05 21:14 | PTCARENOTE ---
Patient with no complaints, Tikosyn dose 4 given at 8pm, EKG 10pm. NSR with 1st degree HB HR 71, plan of care reviewed, call maya in reach
[2025-07-05 22:05] VITALS: BP 127/74
[2025-07-05 23:14] LABS: Glucose - Point of Care 124 mg/dl (70-99)
--- NOTE | 2025-07-06 01:42 | PTCARENOTE ---
Assumed care of patient at approx 23:00. Pt AAOx3, VSS, and denies any pain or SOB. Tele remains NSR w/ 1st AV block, HR in the 60-70's at rest. BS 124. POC ongoing, call maya within reach.
[2025-07-06 04:44] VITALS: BP 118/69
[2025-07-06 07:01] VITALS: BP 118/65
--- NOTE | 2025-07-06 07:31 | W.PN.HOSP.TC ---
Addendum entered and electronically signed by Hansel Hoang DO 07/06/25 10:37:
Cardiology okay with discharge today. Outpatient follow-up.
Original Note:
Today's Communication/Plan
-
Discharge
Assessment / Plan
Assessment / Plan
Gen-AAOx3, NAD
HEENT-NC, AT, anicteric, clear oral mm
Neck-supple
CV-reg, no M, +S1/S2
Lungs-clear B/L
Abd-soft, NT, ND
Ext-no edema
Musculoskeletal-no cyanosis, clubbing
Skin-warm and dry
Neuro-grossly non-focal
Psych-calm, cooperative
New onset rapid atrial fibrillation -unsuccessful cardioversion x 3 in the emergency room. Spontaneously converted to sinus rhythm 10/30 AM.
Tikosyn loading per cardiology. Noted plans for ablation next week, July 08.
Symptoms completely resolved.
Currently on metoprolol, Eliquis.
TSH 2.7.
Echocardiogram shows LVEF 60 to 65%, trivial pericardial effusion, no pulmonary hypertension. Mildly dilated RV with normal RV systolic function. In some short axis views the septum appeared mildly flattened.
CT chest negative for pulmonary embolism. Straightening Interventricular septum noted with RV/LV ratio approximately 1-1. Minimal coronary artery calcification in the left circumflex.
Leukocytosis -present on admission. Suspect leukemoid reaction. WBC count now normal. Afebrile.
DM 2 without hyperglycemia -hemoglobin A1c 6.1%. Patient states glucoses have been under good control.
Has been on Farxiga 10 mg daily, metformin 1000 mg twice daily, glargine insulin 45 units every morning. Is in the process of transitioning from glargine to tirzepatide 10 mg subcu weekly.
Currently on glargine 30 units at bedtime, metformin at thousand twice a day, Farxiga 10 mg daily, aspart low resistance scale.
Glucoses are well-controlled in the hospital.
Hyperlipidemia -atorvastatin.
Obesity due to excess calories
Full code
Dispo -discharge today if okay with cardiology. Outpatient follow-up
32 minutes spent in discharge process.
Anticipated Discharge: Today
Subjective/Interval History
-
Date of Service: July 06, 2025
Patient seen and examined. No complaints.
Objective Data
-
Vital Signs:
Vital Signs
Temp Pulse Resp BP Pulse Ox
97.8 F 73 16 118/69 94
07/06/25 06:59 07/06/25 05:00 07/06/25 06:59 07/06/25 04:44 07/06/25 06:59
I&O
07/05/25 07/06/25 07/07/25
06:59 06:59 05:59
Intake Total 200 / 200 840 / 840
Balance 200 / 200 840 / 840
Review of Systems
-
History Source: Patient
All other systems: Reviewed and negative
--- NOTE | 2025-07-06 07:56 | W.PN.CARDCBS ---
Addendum entered and electronically signed by Chace Coleman MD 07/06/25 10:40:
Patient seen, interviewed and examined by me.
Well-appearing, no acute distress
Regular rate and rhythm with normal S1 and S2, no S3 no S4. There is a grade 1/6 apical holosystolic murmur and no rubs. PMI is normally placed.
Lungs are clear to auscultation bilaterally without wheezes rales or rhonchi.
Abdomen soft nontender nondistended with normoactive bowel sounds
Extremities show trace pretibial edema bilaterally no clubbing or cyanosis.
Neurologic exam is grossly nonfocal.
ECG after his fifth dose of dofetilide 500 mcg finds stable corrected QT interval at approximately 450 ms. Telemetry showed no concerning arrhythmias. He has maintained sinus rhythm.
I discussed and reviewed these findings with him. We also discussed moving forward with atrial flutter ablation which I have tentatively scheduled for him for this coming Tuesday. He tells me he wishes to proceed with flutter ablation.
I would foresee discontinuation of dofetilide after his flutter ablation.
He will need to maintain Eliquis for minimum of 30 days after the flutter ablation.
All of his questions have been answered.
Original Note:
Today's Communication / Plan
-
Continue Tikosyn 500 mcg every 12 hours
Continue Toprol, Eliquis
Plan for DC after fifth dose today so long as QTc remains stable
Plan for return for a flutter ablation 07/10
Impression / Plan
-
PCP: Dr. Cervantes
Card: None
Impression:
Admitted with Afib and unsuccessful CV 07/04/25
Newly diagnosed paroxysmal typical atrial flutter 07/04/2025
Unsuccessful CV in the ER rn primary care 07/04/2025
150 J then 200 J then 200 J with brief taoist of SR in the back into atrial flutter
DM 2
Hyperlipidemia
Abnormal echo with mildly dilated RV and overall normal function
Echo 07/04/2025: EF 60 to 65%, mild LVH, and some short axis views the septum appears mildly flattened, mildly dilated RV with normal RV function, focal calcification anterior mitral valve leaflet without regurgitation or stenosis, aortic valve
mildly thickened without regurgitation or stenosis, trivial pericardial effusion without evidence of hemodynamic compromise, no evidence of pulmonary hypertension, trace TR with PAP 20 mmHg's
Plan:
-Patient came to the ER 07/04/2025 with palpitations and was admitted with atrial flutter following unsuccessful CV in ER with 150 J then 200 J and then 200 J. Had brief taoist of SR until he went back into atrial flutter.
-given paroxysmal nature of arrhythmia was started on tikosyn. remains in SR on review of tele overnight
-thus far tolerating tikosyn 500mcg Q12H. QTc stable
-continue eliquis
- Plan for EP study and ablation targeting typical right atrial flutter on July 10.
-home sleep study to evaluate for obstructive sleep apnea in outpt setting
-Chest CT PE ordered due to mildly dil RV on Echo. CT negative for PE. minimal coronary art calcification present in circumflex artery.
-Continue outpatient metoprolol succinate 25 mg daily
-Continue outpatient Farxiga 10 mg daily
-Continue outpatient atorvastatin 10 mg daily
-plan for DC to home today so long as QTc remains stable by EKG post 5th tikosyn dose
-d/w nursing
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
Subjective
Date of Service: July 06, 2025
No issues overnight
Objective
Labs:
07/04/25 06:12
07/04/25 06:12
Labs
Hgb 15.1 g/dL (13.0-18.0) 07/04/25 06:12
Hct 44.3 % (39.0-52.0) 07/04/25 06:12
Plt Count 241 10^3/uL (130-400) 07/04/25 06:12
PT 13.1 Sec (11.4-14.6) 07/03/25 20:55
INR 0.94 07/03/25 20:55
APTT 33.2 Sec (23.4-35.0) 07/03/25 20:55
Sodium 139 mmol/L (135-145) 07/04/25 06:12
Potassium 4.1 mmol/L (3.5-5.1) 07/04/25 06:12
BUN 19 mg/dl (9-20) 07/04/25 06:12
Creatinine 1.0 mg/dL (0.7-1.3) 07/04/25 06:12
Glucose 99 mg/dl (70-99) 07/04/25 06:12
Troponins
07/03/25
20:55
Troponin I < 0.012
Vital Signs and I&O:
Vital Signs
Temp Pulse Resp BP Pulse Ox
97.8 F 73 16 118/69 94
07/06/25 06:59 07/06/25 05:00 07/06/25 06:59 07/06/25 04:44 07/06/25 06:59
Vital Signs
Temp Pulse Resp BP Pulse Ox
97.8 F 73 16 118/69 94
07/06/25 06:59 07/06/25 05:00 07/06/25 06:59 07/06/25 04:44 07/06/25 06:59
Intake & Output
07/03/25 07/04/25 07/05/25 07/06/25
07:59 07:59 07:59 07:59
Intake Total 200 / 680 840 / 840
Balance 200 / 680 840 / 840
Physical Exam
Physical Exam
GEN: No distress, awake, alert, oriented x3
HEENT: supple, anicteric, mmm, EOMI
LUNGS: CTA bilaterally, no wheezes/rales
CV: Reg, S1/S2, no murmur
ABD: soft, BS+, NT/ND
EXT: No cyanosis, clubbing, edema
NEURO: Gross non-focal
SKIN: Warm, pink, dry. No rash
--- NOTE | 2025-07-06 07:59 | W.DS.TRANS ---
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
-
Discharge Instructions:
Sleep Apnea Risk Low
Discharge Diagnosis/Procedures Newly diagnosed paroxysmal typical atrial
flutter
Diet Diabetic, Carb Controlled
Activity As tolerated
Driving Restrictions As prior to admission
Bathing Restrictions None
Instructions:
Stand-Alone Forms:
Changes to Home Medications: No
Discharge Medications:
DC Medications w/original date entered in [employer]
atorvastatin 10 mg tablet 10 mg PO DAILY 07/03/25
cholecalciferol (vitamin D3) 125 mcg (5,000 unit) tablet (Vitamin D3) 125 mcg PO DAILY 07/03/25
coenzyme Q10 100 mg capsule 100 mg PO DAILY 07/03/25
dapagliflozin propanediol 10 mg tablet (Farxiga) 10 mg PO DAILY 07/03/25
insulin glargine 100 unit/mL subcutaneous cartridge 45 unit SC DAILY 07/03/25
metformin 1,000 mg tablet 1,000 mg PO BID 07/03/25
tirzepatide 10 mg/0.5 mL subcutaneous pen injector (Mounjaro) 10 mg SC QWEEK 07/03/25
apixaban 5 mg tablet (Eliquis) 5 mg PO BID Blood clot prevention/tx #60 tabs 07/04/25
dofetilide 500 mcg capsule 500 mcg PO ONCE Arrhythmia #60 caps 07/04/25
metoprolol succinate 25 mg tablet,extended release 24 hr 25 mg PO DAILY Arrhythmia #30 tabs 07/04/25
Home Medication Changes
Pending Results: No
[2025-07-06 08:03] LABS: Glucose - Point of Care 117 mg/dl (70-99)
[2025-07-06] MEDS: TIKOSYN 500 MCG PO (08:03)
[2025-07-06] MEDS: GLUCOPHAGE 1000 MG PO (08:04)
[2025-07-06] MEDS: FARXIGA 10 MG PO (08:04)
[2025-07-06] MEDS: LIPITOR 10 MG PO (08:04)
[2025-07-06] MEDS: LANTUS 0.3 UNITS SC (08:04)
[2025-07-06] MEDS: ELIQUIS 5 MG PO (08:04)
[2025-07-06] MEDS: TOPROL XL 25 MG PO (08:04)
[2025-07-06 11:00] VITALS: BP 119/73
--- NOTE | 2025-07-06 11:55 | PTCARENOTE ---
07/06/25 D/C order given per Md. IV, telem pack removed. Explained discharge instructions and medications to patient. Encouraged questions, support given. All questions answered. Pt's at bedside- no further concerns. Pt escorted out with
and RN.
== END 2025-07-06 11:57 | disposition home or self-care (01) | DRG 310 ==
LOC: IVU 02:00
PROVIDERS: Physician Assistant Medical; Student in an Organized Health Care Education/Training Program; ADMITTING PHYSICIAN Internal Medicine; ATTENDING PHYSICIAN Hospitalist; EMERGENCY PHYSICIAN Emergency Medicine; FAMILY PHYSICIAN Family Medicine; OTHER PHYSICIAN Internal Medicine Cardiovascular Disease
DX: I48.3 Typical atrial flutter (principal); I48.91 Unspecified atrial fibrillation; E11.9 Type 2 diabetes mellitus without complications; E66.09 Other obesity due to excess calories; Z68.29 Body mass index [BMI] 29.0-29.9, adult; Z79.01 Long term (current) use of anticoagulants; Z79.4 Long term (current) use of insulin; Z79.899 Other long term (current) drug therapy
CPT/HCPCS: 71275; 80048; 80053; 82962; 83036; 83735; 84443; 84484; 85025; 85027; 85379; 85610; 85730; 92960; 93005; 93306; 99285; Q9967

== ENCOUNTER 2025-07-10 05:54 | Day surgery (SDC) | payer BC, SELFPAY ==
[2025-07-10] VITALS (11 sets, daily range): BP systolic 114–147; BP diastolic 69–89; BMI 30.3
[2025-07-10 07:07] LABS: Glucose - Point of Care 111 mg/dl (70-99)
[2025-07-10 08:43] LABS: Glucose - Point of Care 96 mg/dl (70-99)
[2025-07-10 08:49] LABS: ACT-LR - POC 385 Seconds (116-155)
--- NOTE | 2025-07-10 09:42 | ITS.CL.ABL ---
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
Ablation
Procedure Report:
ELECTROPHYSIOLOGY ABLATION PROCEDURE
�
Date of Procedure: July 10, 2025
��
INDICATION: Symptomatic atrial flutter
�
HISTORY:
Recently diagnosed symptomatic atrial flutter.
He presented to the emergency department [facility] on July 04, 2025 with symptomatic atrial flutter. Cardioversion was attempted in the emergency department but could not restore/maintain sinus rhythm. He was admitted for dofetilide
loading and during dofetilide loading he did convert to sinus rhythm. He is maintained on Eliquis for atrial fibrillation related thromboembolic risk reduction given his elevated background risk based on age and diabetes mellitus.
He presents now for EP study and ablation targeting atrial flutter.
Atrial fibrillation has not been observed.
�
'TIME-OUT' was called and confirmed.
�
PROCEDURE:
Ultrasound Guidance performed by ut was utilized for femoral venous Vascular Access b/l. Vascular US demonstrated the typical vascular anatomy.
A decapolar catheter was positioned within the CS for mapping and recording of both RA and LA electrograms.
Intracardiac echocardiogram was utilized.
Mapping and ablation catheter, Affera Sphere 9 was utilized to create a 3-D electroanatomical activation and voltage map of the right atrium focusing on the cavotricuspid isthmus.
While pacing from the lateral wall of the right atrium, activation map at the CTI demonstrated conduction across the CTI.
Programmed electrical stimulation which included burst atrial pacing as well as delivery of atrial decremental extrastimuli down to atrial ERP failed to induce any sustained arrhythmias.
Based on the clinical presentation and appearance of the ECGs of the targeted arrhythmia, an empiric CTI ablation line is planned.
The sphere 9 catheter was positioned through an Agilis sheath.
Heparin was infused to maintain ACT at 300-350 seconds.��
The sphere 9 mapping/ablation catheter was advanced to the inferior aspect of the tricuspid annulus (isthmus of atrial tissue between the annulus and inferior vena caval orifice).��Selection of sites for ablation were based on activation and on
anatomic approach.��
Closer to the tricuspid annulus and at the mid CTI radiofrequency energy was delivered and closer to the inferior vena cava pulsed electric field energy was delivered to try to interrupt a critical portion of the flutter circuit.��Ablation
applications were given from the 5 to 7 o�clock positions along the tricuspid annulus during sinus rhythm and while pacing from the lateral right atrium.��At the conclusion of this, pacing from both the lateral as well as medial aspect of the
tricuspid annulus revealed a discontinuity in the wavefront of atrial activation along the tricuspid annulus-IVC isthmus; sites medial to 6 o�clock were activated from the medial aspect, and those lateral to 6 o�clock were activated from the lateral
aspect.��This suggests that the flutter circuit utilizing this isthmus as a critical portion of its propagation had been interrupted.� Programmed electrical stimulation was repeated and still there were no induced arrhythmias.
Intracardiac echocardiogram demonstrated no pericardial effusion around the right heart and no pericardial effusion around the left heart, there is normal RV and LV function.
Catheters were removed. Heparin was discontinued and protamine was administered.
Vascade was used to obtain venous hemostasis.
�
COMPLICATIONS: None
�
SUMMARY:��
EPS with mapping and ablation of SVT
Three-dimensional electroanatomical mapping
Intracardiac echocardiogram
Ultrasound guided vascular access.
�
RECOMMENDATIONS:
Discontinue dofetilide
Maintain Eliquis for 30 days and then discontinue.
Office visit with me is scheduled for October 24, 2025
Copy: Dr. George Cervantes
[2025-07-10 11:34] LABS: ACT-LR - POC > 397 Seconds (116-155)
--- NOTE | 2025-07-10 11:57 | W.PN.UPDATE ---
Update Note
Progress Note Update
Pt seen post AFlutter ablation. Right groin with vascade closure, no ht/bleeding. OOB ambulating. Post EKG NSR, no acute changes. Will resume Eliquis tonight, continue for 30 days post procedure, then stop and start aspirin 81mg daily. Discontinue
tikosyn. Followup with Dr. Coleman in 3 months as scheduled. Home today if groin site/tele remain stable.
== END 2025-07-10 13:35 | disposition home or self-care (01) ==
LOC: CATH 05:54
PROVIDERS: ATTENDING PHYSICIAN Internal Medicine Cardiovascular Disease; FAMILY PHYSICIAN Family Medicine
DX: I48.92 Unspecified atrial flutter (principal); I48.91 Unspecified atrial fibrillation; E11.9 Type 2 diabetes mellitus without complications; I44.0 Atrioventricular block, first degree; I47.10 Supraventricular tachycardia, unspecified; E78.5 Hyperlipidemia, unspecified; Z79.85 Long-term (current) use of injectable non-insulin antidiabetic drugs; Z79.84 Long term (current) use of oral hypoglycemic drugs; Z79.899 Other long term (current) drug therapy; Z79.4 Long term (current) use of insulin; Z79.01 Long term (current) use of anticoagulants
CPT/HCPCS: C1733; C1894; C1769; C1766; C1892; 82962; 85347; 86850; 86900; 86901; 93005; 93653; C1760